=== PATIENT | female | born 1995 | race Caucasian/White ===

== ENCOUNTER 2018-01-29 19:35 | Emergency (ER) | payer BC ==
[~2018-01-29] VITALS: Ht 165.1 cm; Wt 58.2 kg
[~2018-01-29 19:35] MED LIST: AUGMENTIN875 MG PO; BENADRYL A12.5 MG/5 PO; BUSPAR10 MG PO; ESCITALOPRAM OX20 MG PO; NAPROSYN500 MG PO; NOHOMEMEDS; PROAIR HFA8.5 GM IH
[2018-01-29 21:42] LABS: TROP-I INTERPRETATION NEGATIVE; TROPONIN-I < 0.01 ng/mL (0.0-0.30)
[2018-01-29 22:56] LABS: APPEARANCE CLEAR ((CLEAR)); BILIRUBIN NEGATIVE; BLOOD LARGE; COLOR STRAW ((YELLOW)); GLUCOSE (STRIP) NEGATIVE; KETONES NEGATIVE; LEUKOCYTES MODERATE; NITRITE NEGATIVE; PROTEIN (STRIP) NEGATIVE; SPECIFIC GRAVITY 1.034 (1.000-1.030); UROBILINOGEN 0.2 MG/DL (0.2-1.0)
[2018-01-29 22:57] LABS: BACTERIA NONE SEEN /HPF; EPITHELIAL CELLS RARE /HPF; MUCUS NONE SEEN /LPF; UCUL ADDED? YES
[2018-01-29] MEDS ORDERED: ZOFRAN4 MG PO (23:24)
[2018-01-29] MEDS ORDERED: NORCO 5/3251 TABLET PO (23:24)
[2018-01-30 00:25] VITALS: BP 106/78
== END 2018-01-30 00:25 | disposition home or self-care (01) ==
LOC: EME 19:35
PROVIDERS: Emergency Medicine
DX: N12 Tubulo-interstitial nephritis, not specified as acute or chronic (principal); J45.909 Unspecified asthma, uncomplicated; Z87.440 Personal history of urinary (tract) infections; Z88.8 Allergy status to other drugs, medicaments and biological substances
CPT/HCPCS: 71275; 81003; 83605; 83690; 84484; 87040; 87086; 93005; 99281; 99285; J0696; J1885; J7030